=== PATIENT | female | born 1985 | race African-American/Black ===

== ENCOUNTER 2017-07-17 14:43 | Emergency (ER) | payer OTHER ==
[~2017-07-17] VITALS: Ht 162.6 cm; Wt 72.6 kg
[~2017-07-17 14:43] MED LIST: BACTRIM DS TAB1 EACH PO; IBUPROFEN 600600 M1 PO; NORCO 5-325 TA1 EACH PO; TESSALON PERLE100 MG PO
[2017-07-17 16:36] LABS: ABSOLUTE NEUTROPHILS 2.7 thou/uL (1.4-8.2); BASOPHILS 0.6 % (0.0-2.0); EOSINOPHILS 1.2 % (0.0-3.0); HEMATOCRIT 39.6 % (37.0-47.0); HEMOGLOBIN 13.4 gm/dL (12.0-15.0); LYMPHOCYTES 46.2 % (24.0-44.0); MCH 29.9 pg (26.0-34.0); MCHC 33.7 g/dL (28.0-37.0); MCV 88.8 fL (80.0-100.0); MONOCYTES 5.3 % (1.0-8.0); PLATELET COUNT 168 thou/uL (150-400); POLYS 46.7 % (36.0-66.0); RBC 4.47 mil/uL (4.20-5.00); RDW 13.7 % (10.5-14.5); WBC 5.9 thou/uL (4.0-11.0)
[2017-07-17 16:45] LABS: CREATININE 0.9 mg/dL (0.6-1.0); POTASSIUM 3.9 mmol/L (3.5-5.1)
[2017-07-17 16:46] LABS: MANUAL DIFF NO
[2017-07-17] MEDS ORDERED: TIZANIDINE HCL4 MG PO (19:09)
[2017-07-17] MEDS ORDERED: NORCO 5-325 TA1 EACH PO (19:09)
[2017-07-17 19:24] VITALS: BP 126/79
== END 2017-07-17 19:26 | disposition home or self-care (01) ==
LOC: ER 14:43
PROVIDERS: Nurse Practitioner
DX: R25.2 Cramp and spasm (principal); F17.210 Nicotine dependence, cigarettes, uncomplicated; F10.99 Alcohol use, unspecified with unspecified alcohol-induced disorder